=== PATIENT | female | born 1955 | race Asian ===

== ENCOUNTER 2018-05-18 00:39 | Inpatient (IN) | payer OTHER ==
[2018-05-18] MEDS ORDERED: ONDANSETRON 4 MG INJ IV (02:00)
[2018-05-18] MEDS ORDERED: ALBUTEROL/IPRATROPIUM (NEB) 3 ML AMP HHN (02:00)
[2018-05-18] MEDS ORDERED: NACL 0.9% 3 ML SYG IV (02:00)
[2018-05-18] MEDS ORDERED: ACETAMINOPHEN 325 MG TAB PO (02:00)
[2018-05-18] MEDS ORDERED: DIPHENHYDRAMINE 50 MG INJ IV (02:00)
[2018-05-18] MEDS ORDERED: GLUCOSE GEL 15 GRAM TUBE PO ×2 (03:30)
[2018-05-18] MEDS ORDERED: GLUCAGON 1 MG INJ IM (03:30)
[2018-05-18] MEDS ORDERED: GLUCOSE GEL 15 GRAM TUBE BUCCAL (03:30)
[2018-05-18] MEDS ORDERED: DEXTROSE 50% 50 ML SYRINGE IV ×2 (03:30)
[2018-05-18] MEDS: traMADol 50 MG TAB PO (05:59)
[2018-05-18] MEDS: CLINDAMYCIN 600 MG/D5W (PMX) 50 ML IVPB ×3 (05:59→22:11)
[2018-05-18 06:40] LABS: INR 0.98; PARTIAL THROMBOPLASTIN TIME 29.2 Sec (23.0-35.0); PROTIME 13.1 Sec (11.9-14.9)
[2018-05-18] MEDS: INSULIN ASPART [NOVOLOG] 3 ML PEN SC ×4 (07:59→20:11)
[2018-05-19] MEDS: ACCU-CHEK XX (01:56)
[2018-05-19] MEDS: CLINDAMYCIN 600 MG/D5W (PMX) 50 ML IVPB ×3 (05:16→22:06)
[2018-05-19 05:50] LABS: ADD MAN DIFF? NO
[2018-05-19 05:55] LABS: WHITE BLOOD COUNT 6.9 10^3/ul (4.8-10.8)
[2018-05-19 05:55] LABS: BASOPHILS % 0.4 % (0.0-2.0); EOSINOPHILS # 0.2 10^3/ul (0.0-0.5); EOSINOPHILS % 2.2 % (0.0-7.0); HEMATOCRIT 31.9 % (37.0-47.0); HEMOGLOBIN 10.7 g/dl (12.0-16.0); LYMPHOCYTES # 3.2 10^3/ul (0.8-2.9); LYMPHOCYTES % 45.6 % (15.0-51.0); MEAN CORPUSCULAR HEMOGLOBIN 29.2 pg (29.0-33.0); MEAN CORPUSCULAR HGB CONC 33.5 g/dl (32.0-37.0); MEAN CORPUSCULAR VOLUME 87.2 fl (82.0-101.0); MEAN PLATELET VOLUME 8.8 fl (7.4-10.4); MONOCYTE # 0.5 10^3/ul (0.3-0.9); MONOCYTES % 7.6 % (0.0-11.0); NEUTROPHILS % 43.8 % (39.0-77.0); PLATELET COUNT 320 10^3/UL (140-415); RED BLOOD COUNT 3.66 10^6/ul (4.20-5.40); RED CELL DISTRIBUTION WIDTH 11.5 % (11.5-14.5)
[2018-05-19 06:24] LABS: ANION GAP 9 (8-16); BLOOD UREA NITROGEN 17 mg/dl (7-20); CARBON DIOXIDE 28 mmol/L (21-31); CHLORIDE 109 mmol/L (97-110); CREATININE 0.74 mg/dl (0.44-1.00); GLUCOSE 118 mg/dl (70-220); POTASSIUM 4.3 mmol/L (3.5-5.1); SODIUM 142 mmol/L (135-144)
[2018-05-19 06:45] LABS: HEMOGLOBIN A1C 8.7 % (0-5.9)
[2018-05-19 06:47] LABS: ALANINE AMINOTRANSFERASE 13 IU/L (13-69); ALBUMIN 3.2 g/dl (3.3-4.9); ALBUMIN/GLOBULIN RATIO 0.86; ALKALINE PHOSPHATASE 79 IU/L (42-121); ANION GAP 11 (8-16); ASPARTATE AMINO TRANSFERASE 24 IU/L (15-46); BILIRUBIN,INDIRECT 0.4 mg/dl (0-1.1); BILIRUBIN,TOTAL 0.4 mg/dl (0.2-1.3); BLOOD UREA NITROGEN 17 mg/dl (7-20); CALCIUM 8.9 mg/dl (8.4-10.2); CARBON DIOXIDE 28 mmol/L (21-31); CHLORIDE 106 mmol/L (97-110); CREATININE 0.75 mg/dl (0.44-1.00); GLUCOSE 120 mg/dl (70-220); MAGNESIUM 1.9 mg/dl (1.7-2.5); PHOSPHORUS 4.4 mg/dl (2.5-4.9); SODIUM 141 mmol/L (135-144); TOTAL PROTEIN 6.9 g/dl (6.1-8.1)
[2018-05-19] MEDS: INSULIN ASPART [NOVOLOG] 3 ML PEN SC ×4 (08:00→20:16)
[2018-05-19] MEDS: NEOMYC/POLYMYX/BACIT 30 GM OINT TOP ×2 (09:53→20:19)
[2018-05-19] MEDS: INFLUENZA VIRUS VACCINE 0.5 ML (DISPENSING) IM* (13:54)
[2018-05-19] MEDS: ACYCLOVIR 400 MG TAB PO (20:16)
[2018-05-19] MEDS: traMADol 50 MG TAB PO (20:16)
[2018-05-20] MEDS: ACCU-CHEK XX (02:00)
[2018-05-20] MEDS: CLINDAMYCIN 600 MG/D5W (PMX) 50 ML IVPB (06:00)
[2018-05-20] MEDS: INSULIN ASPART [NOVOLOG] 3 ML PEN SC (08:00)
[2018-05-20] MEDS: ACYCLOVIR 400 MG TAB PO (08:35)
[2018-05-20] MEDS: NEOMYC/POLYMYX/BACIT 30 GM OINT TOP (08:36)
[2018-05-20] MEDS: traMADol 50 MG TAB PO (08:41)
== END 2018-05-20 11:40 | disposition home or self-care (01) | DRG 159 ==
LOC: 2NE 00:39
PROC: 3E0234Z Introduction of Serum, Toxoid and Vaccine into Muscle, Percutaneous Approach (ICD-10-PCS; principal; 2018-05-19)
DX: K13.0 Diseases of lips (principal); E11.9 Type 2 diabetes mellitus without complications; Z23 Encounter for immunization
CPT/HCPCS: 70486; 80048; 80053; 82962; 83036; 83735; 84100; 85025; 85610; 85730; 90686

== ENCOUNTER 2018-05-30 19:45 | Emergency (ER) | payer OTHER ==
[2018-05-30] MEDS: CEPHALEXIN 500 MG CAP PO (21:24)
[2018-05-30] MEDS: TRIMETHOPRIM/SULFAMETHOX (DS) TAB PO (21:24)
== END 2018-05-30 21:56 | disposition home or self-care (01) ==
LOC: FTE 19:45
DX: L08.9 Local infection of the skin and subcutaneous tissue, unspecified (principal); S01.511D Laceration without foreign body of lip, subsequent encounter; E11.9 Type 2 diabetes mellitus without complications; W18.39XD Other fall on same level, subsequent encounter
CPT/HCPCS: 99283; Z7502